=== PATIENT | male | born 1965 | race Caucasian/White ===

== ENCOUNTER 2017-10-03 09:10 | Emergency (ER) | payer OTHER ==
[2017-10-03] MEDS: LIDOCAINE 1%/EPI 30 ML INJ INJ (09:36)
[2017-10-03] MEDS: TRIMETHOPRIM/SULFAMETHOX (DS) TAB PO (09:37)
[2017-10-03] MEDS: CEPHALEXIN 500 MG CAP PO (09:37)
[2017-10-03] MEDS ORDERED: SILVER SULFADIAZINE 1% 25 GM CR TOP (10:01)
[2017-10-03] MEDS: IBUPROFEN 800 MG TAB PO (10:09)
== END 2017-10-03 10:52 | disposition home or self-care (01) ==
LOC: FTE 09:10
DX: L02.413 Cutaneous abscess of right upper limb (principal); F17.200 Nicotine dependence, unspecified, uncomplicated
CPT/HCPCS: 10061; 99284-25

== ENCOUNTER 2018-01-31 09:17 | Emergency (ER) | payer OTHER ==
[2018-01-31] MEDS: LORAZEPAM 1 MG TAB PO (09:51)
== END 2018-01-31 10:27 | disposition home or self-care (01) ==
LOC: FTE 09:17
DX: F41.9 Anxiety disorder, unspecified (principal); F17.210 Nicotine dependence, cigarettes, uncomplicated
CPT/HCPCS: 99283; Z7502